=== PATIENT | female | born 1960 | race Caucasian/White ===

== ENCOUNTER 2020-02-20 10:17 | Emergency (ER) | payer BC ==
[~2020-02-20] VITALS: Ht 165.1 cm; Wt 78.2 kg
--- NOTE | 2020-02-20 11:54 | RAD ---
AP chest. HISTORY: Cough AP view was taken of the chest. Lungs are clear. Heart is normal in size. There is no pleural effusion. There is arthritis in the shoulders especially on the right. IMPRESSION: 1. No acute infiltrates. Electronically signed by: Dontrell Albarran MD (02/20/2020 11:51 AM) [id number]
--- NOTE | 2020-02-20 12:11 | PHYS DOC ---
Past History Past Medical History: Anxiety, Arthritis, Diverticulitis, Fibromyalgia, Hypertension Past Surgical History: Appendectomy, Hysterectomy, Tonsillectomy, Other Additional Past Surgical Histo: RIGHT FOOT Additional Smoking Information: 1/4 PACK Alcohol Use: None General Adult EDM: Chief Complaint: COUGH HPI: HPI: 59-year-old female presents with cough and nasal drainage. She was up most of the night because she could not sleep due to all of the coughing and drainage. She does not believe that she has COVID-19. She has no known exposures. She denies fever or chills. She has tried Benadryl with some relief. Review of Systems: Review of Systems: Constitutional: Denies fever or chills Eyes: Denies change in visual acuity HENT: Runny nose, sore throat. Respiratory: Cough without shortness of breath Cardiovascular: Denies chest pain or edema GI: Denies abdominal pain, nausea, vomiting, bloody stools or diarrhea : Denies dysuria Musculoskeletal: Denies back pain or joint pain Integument: Denies rash Neurologic: Denies headache, focal weakness or sensory changes Endocrine: Denies polyuria or polydipsia Lymphatic: Denies swollen glands Psychiatric: Denies depression or anxiety Allergies: Allergies: Allergies Coded Allergies Type Severity Reaction Last Updated Verified ciprofloxacin Allergy Unknown 02/20/20 Yes Physical Exam: PE: Constitutional: Well developed, well nourished, no acute distress, non-toxic appearance. [] HENT: Normocephalic, atraumatic, bilateral external ears normal, oropharynx erythematous without tonsillar exudates, nose thin drainage. [] Eyes: PERRLA, EOMI, conjunctiva normal, no discharge. [] Neck: Normal range of motion, no tenderness, supple, no stridor. [] Cardiovascular: Heart rate regular rhythm, no murmur [] Lungs & Thorax: Coughing. Bilateral breath sounds diminished but clear to auscultation [] Abdomen: Bowel sounds normal, soft, no tenderness, no masses, no pulsatile masses. [] Skin: Warm, dry, no erythema, no rash. [] Back: No tenderness, no CVA tenderness. [] Extremities: No tenderness, no cyanosis, no clubbing, ROM intact, no edema. [] Neurologic: Alert and oriented X 3, normal motor function, normal sensory function, no focal deficits noted. [] Psychologic: Affect normal, judgement normal, mood normal. [] Current Patient Data: Vital Signs: Vital Signs Date Time Temp Pulse Resp B/P (MAP) Pulse Ox O2 Delivery O2 Flow Rate FiO2 02/20/20 10:40 98.1 72 20 164/86 (112) 93 Room Air EKG: EKG: [] Radiology/Procedures: Radiology/Procedures: [] Impressions: AP chest. HISTORY: Cough AP view was taken of the chest. Lungs are clear. Heart is normal in size. There is no pleural effusion. There is arthritis in the shoulders especially on the right. IMPRESSION: 1. No acute infiltrates. Electronically signed by: Dontrell Richardson MD (02/20/2020 11:51 AM) [id number] DICTATED AND SIGNED BY: DONTRELL RICHARDSON MD DATE: 02/20/20 1151 CC: BLAKE PALOMO DO; [facility] ~ Heart Score: Risk Factors: Risk Factors: DM, Current or recent (<one month) smoker, HTN, HLP, family history of CAD, obesity. Risk Scores: Score 0 - 3: 2.5% MACE over next 6 weeks - Discharge Home Score 4 - 6: 20.3% MACE over next 6 weeks - Admit for Clinical Observation Score 7 - 10: 72.7% MACE over next 6 weeks - Early Invasive Strategies Course & Med Decision Making: Course & Med Decision Making Pertinent Labs and Imaging studies reviewed. (See chart for details) The patient's labs are not remarkable. Her chest x-ray is negative for acute findings. I believe this is just a viral URI with cough. I have given her Cristina tra Perles and Sudafed. I will discharge her with a prescription for Tessalon Perles. She is stable for discharge at this time. [] Dragon Disclaimer: Dragon Disclaimer: This electronic medical record was generated, in whole or in part, using a voice recognition dictation system. Departure Departure: Impression: Primary Impression: Viral URI with cough Disposition: 01 DC HOME SELF CARE/HOMELESS Condition: STABLE Referrals: MARIEL LANE (PCP) Patient Instructions: Upper Respiratory Infection, Adult, [id number] Scripts Benzonatate (TESSALON PERLE) 100 Mg Capsule 1 CAP PO TID PRN for COUGH, #30 CAP Prov: BLAKE PALOMO DO 02/20/20 BLAKE PALOMO DO Feb 20, 2020 12:10
[2020-02-20] MEDS ORDERED: BENZONATATE 100 MG CAPSULE. PO ONE (12:15)
[2020-02-20] MEDS ORDERED: PSEUDOEPHEDRINE 30 MG TABLET. PO ONE (12:15)
[2020-02-20 13:42] VITALS: BP 139/69
[2020-02-20] MEDS ORDERED: BENZ100C PO (13:56)
== END 2020-02-20 14:05 | disposition home or self-care (01) ==
LOC: ER 10:17
DX: J06.9 Acute upper respiratory infection, unspecified (principal); Z20.828 Contact with and (suspected) exposure to other viral communicable diseases; F41.9 Anxiety disorder, unspecified; M19.90 Unspecified osteoarthritis, unspecified site; M79.7 Fibromyalgia; I10 Essential (primary) hypertension; F17.200 Nicotine dependence, unspecified, uncomplicated; Z88.1 Allergy status to other antibiotic agents
CPT/HCPCS: 71045; 99284; C9803; U0003

== ENCOUNTER 2020-11-16 17:22 | Emergency (ER) | payer SELFPAY ==
[~2020-11-16] VITALS: Ht 165.1 cm; Wt 80.6 kg
[~2020-11-16 17:22] MED LIST: BENZ100C PO
--- NOTE | 2020-11-16 18:10 | PHYS DOC ---
Past History Past Medical History: Anxiety, Arthritis, Diverticulitis, Fibromyalgia, Hypertension (FOREST RODRIGUEZ APRN) Past Surgical History: Appendectomy, Hysterectomy, Tonsillectomy, Other Additional Past Surgical Histo: RIGHT FOOT, NECK (FOREST RODRIGUEZ APRN) Alcohol Use: None (FOREST RODRIGUEZ APRN) General Adult EDM: Chief Complaint: KNEE SWELLING HPI: HPI: Patient is a 60-year-old female who presents to the ER today with right knee pain and bilateral foot pain. Patient reports that her pain started 1 week ago. She started a new job and has been on her feet. Patient is rating her pain 8 out of 10. It starts at right knee and radiates down to her foot. The pain is worse with movement and bearing weight. Patient is able to bear weight and ambulate. Patient reports that the pain is worse after she has been working all day and standing. Patient reports she is attempted to use insoles without any relief in her symptoms. She has also been taking Tylenol, ibuprofen, 10 mg OxyContin that she takes at home for her chronic pain. Patient took these medications at 1230 today. Patient denies any falls or injuries. Patient is very hysterical and tearful in the room. She reports that she has a new doctor who is withdrawing her from her opiate medications because of that she feels she is having overwhelming pain because she is not getting the pain medication that she is used to taking. Patient denies any decreased sensation in her extremities or decreased range of motion. (FOREST RODRIGUEZ APRN) Review of Systems: Review of Systems: 14 body systems of the review of systems have been reviewed. See HPI for pertinent positive and negative responses, otherwise all other systems are negative, nonpertinent or noncontributory (FOREST RODRIGUEZ APRN) Allergies: Allergies: Allergies Coded Allergies Type Severity Reaction Last Updated Verified ciprofloxacin Allergy Unknown 02/20/20 Yes (FOREST RODRIGUEZ APRN) Physical Exam: PE: Constitutional: Well developed, well nourished, no acute distress, non-toxic appearance. [] HENT: Normocephalic, atraumatic Eyes: PERRL, conjunctiva normal, no discharge. [] Neck: Normal range of motion, no stridor Cardiovascular: Normal peripheral perfusion Lungs & Thorax: Normal work of breathing, no accessory muscle use Skin: Warm, dry, no erythema, no rash, 1 cm in diameter circular area of swelling noted to the plantar aspect of bilateral feet proximal to the heel. [] Back: No tenderness, normal range of motion Extremities: No tenderness, no cyanosis, strong PT and DP pulses bilaterally, no clubbing, ROM intact, no edema. Right knee: Swelling noted above patella, pain with palpation of the right knee, neuro intact, patient refuses to practicing range of motion due to pain with movement. [] Neurologic: Alert and oriented X 3, normal motor function, normal sensory function, no focal deficits noted. [] Psychologic: Affect normal, judgement normal, mood normal. [] (FOREST RODRIGUEZ APRN) Current Patient Data: Vital Signs: Vital Signs Date Time Temp Pulse Resp B/P (MAP) Pulse Ox O2 Delivery O2 Flow Rate FiO2 11/16/20 17:30 99.6 88 20 131/101 97 Room Air (FOREST RODRIGUEZ APRN) EKG: EKG: [] (FOREST RODRIGUEZ APRN) Radiology/Procedures: Radiology/Procedures: PROCEDURE: FOOT BILAT 3V 3 view study of both feet Clinical indications: Bilateral foot pain and swelling Left foot: No acute fracture or dislocation or lytic process or periosteal reaction is evident. No erosive arthropathy is seen. Small plantar spur of the calcaneus is seen. Dorsal spurring of the first tarsal metatarsal joint is seen. Right foot: No acute fracture or dislocation or lytic process is seen. No periosteal reaction is evident. No erosive arthropathy is seen. Small plantar spur of the calcaneus is evident. IMPRESSION: No acute osseous abnormality. Electronically signed by: Karan Tello MD (11/16/2020 7:14 PM) [id number] DICTATED AND SIGNED BY: KARAN TELLO MD DATE: 11/16/201912 CC: JUAN MABRY; FOREST RODRIGUEZ APRN ~MTH0 0 PROCEDURE: KNEE RIGHT 3V XR KNEE 3 VIEWS_RT Clinical indications: Reason: r. knee pain / Spl. Instructions: / History: Findings: No acute fracture or dislocation or osteolytic process is evident. Mild degenerative spurring of the patellar femoral joint compartment is seen. Minimal right knee joint effusion is seen. IMPRESSION: No acute osseous abnormality is evident. Electronically signed by: Karan Tello MD (11/16/2020 7:13 PM) [id number] DICTATED AND SIGNED BY: KARAN TELLO MD DATE: 11/16/201911 CC: JUAN MABRY; FOREST RODRIGUEZ APRN ~MTH0 0 [] (FOREST RODRIGUEZ APRN) Heart Score: C/O Chest Pain: No Risk Factors: Risk Factors: DM, Current or recent (<one month) smoker, HTN, HLP, family history of CAD, obesity. Risk Scores: Score 0 - 3: 2.5% MACE over next 6 weeks - Discharge Home Score 4 - 6: 20.3% MACE over next 6 weeks - Admit for Clinical Observation Score 7 - 10: 72.7% MACE over next 6 weeks - Early Invasive Strategies (FOREST RODRIGUEZ APRN) Course & Med Decision Making: Course & Med Decision Making Pertinent Labs and Imaging studies reviewed. (See chart for details) [] Patient is a 60-year-old female being seen in the ER today for right knee and bilateral foot pain. Patient takes a significant amount of pain medication and is currently being weaned from OxyContin. She reports that she feels like she is having this overwhelming pain because she is being weaned from the pain medication that she is used to take. X-rays were performed of her bilateral foot and her right knee. She has a small knee effusion on the right knee. She was also noted to have some bone spurs on her bilateral feet. Right knee placed in Pravin wrap. Patient advised to follow-up with her primary care provider regarding her pain management and opioid prescriptions. (FOREST RODRIGUEZ APRN) Dragon Disclaimer: Dragon Disclaimer: This electronic medical record was generated, in whole or in part, using a voice recognition dictation system. (FOREST RODRIGUEZ APRN) Attending Co-Sign The patient was seen and interviewed as well as examined at the bedside. The chart was reviewed. The case was discussed. Agree with the plan of care. (BLAKE PALOMO DO) Departure Departure: Referrals: JUAN MABRY (PCP) FOREST RODRIGUEZ APRN Nov 16, 2020 18:10 BLAKE PALOMO DO Nov 17, 2020 05:04
--- NOTE | 2020-11-16 19:15 | RAD ---
XR KNEE 3 VIEWS_RT Clinical indications: Reason: r. knee pain / Spl. Instructions: / History: Findings: No acute fracture or dislocation or osteolytic process is evident. Mild degenerative spurr ing of the patellar femoral joint compartment is seen. Minimal right knee joint effusion is seen. IMPRESSION: No acute osseous abnormality is evident. Electronically signed by: Patrick Tello MD (11/16/2020 7:13 PM) [id number]
--- NOTE | 2020-11-16 19:17 | RAD ---
3 view study of both feet Clinical indications: Bilateral foot pain and swelling Left foot: No acute fracture or dislocation or lytic process or periosteal reaction is evident. No er osive arthropathy is seen. Small plantar spur of the calcaneus is seen. Dorsal spurring of the first tarsal metatarsal joint is seen. Right foot: No acute fracture or dislocation or lytic process is seen. No periosteal reaction is evid ent. No erosive arthropathy is seen. Small plantar spur of the calcaneus is evident. IMPRESSION: No acute osseous abnormality. Electronically signed by: Patrick Tello MD (11/16/2020 7:14 PM) [id number]
[2020-11-16 20:00] VITALS: BP 126/91
== END 2020-11-16 20:00 | disposition home or self-care (01) ==
LOC: ER 17:22
DX: M25.561 Pain in right knee (principal); M79.672 Pain in left foot; M79.671 Pain in right foot; M19.90 Unspecified osteoarthritis, unspecified site; M79.7 Fibromyalgia; I10 Essential (primary) hypertension; Z88.1 Allergy status to other antibiotic agents
CPT/HCPCS: 73562; 73630; 99284